=== PATIENT | male | born 1995 | race Caucasian/White ===

== ENCOUNTER 2017-02-20 09:14 | Emergency (ER) | payer OTHER, MEDICAID ==
[2017-02-20] MEDS: DEXAMETHASONE 10 MG/ML 1 ML INJ IM (10:04)
[2017-02-20] MEDS: ACETAMINOPHEN 325 MG TAB PO (10:04)
[2017-02-20] MEDS: KETOROLAC 60 MG INJ IM (10:05)
== END 2017-02-20 11:45 | disposition home or self-care (01) ==
LOC: FTE 09:14
DX: J02.0 Streptococcal pharyngitis (principal); R40.2252 Coma scale, best verbal response, oriented, at arrival to emergency department; R40.2362 Coma scale, best motor response, obeys commands, at arrival to emergency department; R40.2142 Coma scale, eyes open, spontaneous, at arrival to emergency department
CPT/HCPCS: 87880; 96372; 99284-25